=== PATIENT | male | born 2000 | race Caucasian/White ===

== ENCOUNTER 2024-04-29 14:04 | Emergency (ER) | payer MEDICAID ==
[~2024-04-29] VITALS: Ht 175.3 cm; Wt 54.4 kg
[2024-04-29 14:14] VITALS: BP_SYST 110; PULSE 105; RESP 19; TEMP 98.5; O2SAT 98
[2024-04-29] MEDS: OXYCODONE/ACETAMINOPHEN *10*mg/325 mg TABLET PO ONE (15:05)
[2024-04-29] MEDS ORDERED: HYDR-3921 PO (16:24)
[2024-04-29] MEDS ORDERED: IBUP-1969 PO (16:24)
[2024-04-29 16:48] VITALS: BP_SYST 110; PULSE 105; RESP 19; TEMP 98.5; O2SAT 98
== END 2024-04-29 16:46 | disposition home or self-care (01) ==
LOC: SED 14:04
DX: S62.640A Nondisplaced fracture of proximal phalanx of right index finger, initial encounter for closed fracture (principal); Z79.899 Other long term (current) drug therapy; W01.0XXA Fall on same level from slipping, tripping and stumbling without subsequent striking against object, initial encounter; Y93.89 Activity, other specified; Y92.89 Other specified places as the place of occurrence of the external cause; Y99.8 Other external cause status
CPT/HCPCS: 99283